=== PATIENT | female | born 1980 | race Caucasian/White ===

== ENCOUNTER 2017-05-30 10:49 | Emergency (ER) | payer OTHER ==
[~2017-05-30] VITALS: Ht 165.1 cm; Wt 108.1 kg
[~2017-05-30 10:49] MED LIST: CLEOCIN HCL300 MG PO
[2017-05-30 12:02] VITALS: BP 134/84
== END 2017-05-30 12:04 | disposition home or self-care (01) ==
LOC: EME 10:49
DX: S63.502A Unspecified sprain of left wrist, initial encounter (principal); W00.0XXA Fall on same level due to ice and snow, initial encounter; Y93.01 Activity, walking, marching and hiking
CPT/HCPCS: 73110; 99281; 99283